=== PATIENT | male | born 1990 | race American Indian/Alaskan Native ===

== ENCOUNTER 2019-10-04 11:00 | Outpatient (CLI) | payer MEDICAID | END 2019-10-04 11:01 | disposition home or self-care (01) | LOC: SLR 11:00 | PROVIDERS: ATTEND Otolaryngology | DX: G47.30 Sleep apnea, unspecified (principal) | CPT/HCPCS: 95811 ==

== ENCOUNTER 2019-10-12 14:23 | Outpatient (CLI) | payer MEDICAID ==
[2019-10-12 14:45] LABS: Basophils # (Auto) 0.1 K/mm3 (0.0-0.1); Eosinophils # (Auto) 0.2 K/mm3 (0.0-0.4); Eosinophils % (Auto) 2.3 % (0.0-4.3); Hematocrit 44.1 % (35.5-45.6); Hemoglobin 14.3 gm/dl (11.8-15.2); Lymphocytes # (Auto) 2.1 K/mm3 (1.2-5.4); Lymphocytes % (Auto) 24.8 % (13.4-35.0); Mean Corpuscular HGB Conc 32 % (32-34); Mean Corpuscular Volume 82 fl (84-94); Monocytes # (Auto) 0.9 K/mm3 (0.0-0.8); Platelet Count 229 K/mm3 (140-440); Red Blood Count 5.36 M/mm3 (3.65-5.03); Red Cell Distribution Width 15.2 % (13.2-15.2)
[2019-10-12 15:03] LABS: Alanine Aminotransferase 56 units/L (7-56); Albumin 4.2 g/dL (3.9-5); BUN/Creatinine Ratio 14; Blood Urea Nitrogen 14 mg/dL (9-20); Calcium 9.8 mg/dL (8.4-10.2); Chol/HDL Ratio 4.85 %; HDL Cholesterol 34 mg/dL (40-59); Hemolysis Index 7; LDL Cholesterol,Direct 119 mg/dL (50-130)
== END 2019-10-12 14:24 | disposition home or self-care (01) ==
LOC: LAB 14:23
PROVIDERS: ATTEND Surgery
DX: Z00.00 Encounter for general adult medical examination without abnormal findings (principal); K30 Functional dyspepsia; D50.9 Iron deficiency anemia, unspecified; E61.8 Deficiency of other specified nutrient elements
CPT/HCPCS: 36415; 80053; 80061; 83036; 84443; 85025

== ENCOUNTER 2019-10-25 07:41 | Day surgery (SDC) | payer MEDICAID ==
[~2019-10-25 07:41] MED LIST: SODIUM CHLORIDE 0.9% 1000 ML 1,000 ML IV SCH
--- NOTE | 2019-10-25 08:57 | Discharge Summary ---
Providers - Providers Date of Admission: 10/25/2019 Date of discharge: 10/25/19 Attending physician: SHANDA GUERRERO MD Primary care physician: CORY SANTIAGO Hospitalization Reason for admission: egd Condition: Good Procedures: egd Hospital course: pt had an uneventful egd as part of pre-op work up for bariatric surgery Disposition: DC-01 TO HOME OR SELFCARE Core Measure Documentation - Palliative Care Palliative Care/ Comfort Measures: Not Applicable - Core Measures Any of the following diagnoses?: none Exam - Physical Exam Narrative exam: unchanged from h&p Plan Activity: no restrictions Diet: low carbohydrate Follow up with: CORY SANTIAGO MD [Primary Care Provider] - 7 Days
--- NOTE | 2019-10-25 08:59 | Operative Report ---
Operative Report Operative Report: OPERATIVE REPORT - EGD DATE 10/25/2019 SURGERY: Upper endoscopy with antral biopsy SURGEON: Mio Farley M.D. APPRENTICESHIP TRAINING REPRESENTATIVE: n/a PRE OP DX: morbid obesity, GERD POST OP DX: morbid obesity, GERD, small hiatal hernia, gastritis TYPE OF ANESTHESIA: MAC. ESTIMATED BLOOD LOSS: None. COMPLICATIONS: None. SPECIMENS REMOVED: None. FINDINGS: 1. Small hiatal hernia. 2. mild diffuse gastritis 3. Otherwise, normal esophagus, stomach and first portion of duodenum. INDICATIONS:INDICATION FOR PROCEDURE: Patient is a 29-year-old male with a long history of morbid obesity. She is planned to have a weight loss procedure and is here for preoperative planning EGD. PROCEDURE DETAILS: After consent was reviewed, patient was taken back to the operating room where patient was placed in the left lateral decubitus position and a bite block was placed in the mouth. After a time-out was called, MAC anesthesia was initiated. I then passed the endoscope into her oropharynx, into his esophagus, visualized the entire esophagus, which was all within normal limits. The Z-line was noted to be regular and about 42cm from the incisors. I then visualized the stomach and the first portion of the duodenum and there were no abnormalities, except for mild diffuse gastritis. I then retroflexed the scope in the stomach and visualized the hiatus and I could see a small hiatal hernia. A cold antral biopsy was performed to eval for h.pylori as part of the pre-op work up and further investigate cause of mucosal changes consistent with gastritis. I then desufflated the stomach and removed the endoscope. Patient tolerated procedure well and was transferred to recovery room in good and stable condition.
--- NOTE | 2019-10-25 09:27 | Anesthesia Day of Surgery ---
Anesthesia Day of Surgery - Day of Surgery Patient Examined: Yes Patient H&P Reviewed: Yes Patient is NPO: Yes
--- NOTE | 2019-10-25 09:30 | Anesthesia Consultation ---
Anesthesia Consult and Med Hx Date of service: 10/25/19 - Airway Anesthetic Teeth Evaluation: Chipped ROM Head & Neck: Adequate Mental/Hyoid Distance: Adequate Mallampati Class: Class II Intubation Access Assessment: Probably Good - Pre-Operative Health Status ASA Pre-Surgery Classification: ASA3 Proposed Anesthetic Plan: MAC - Pulmonary Hx Sleep Apnea: Yes - Cardiovascular System Hx Hypertension: Yes - Central Nervous System Hx Neuromuscular Disorder: Yes (Right fingers neuropathy)
[2019-10-25] MEDS ORDERED: LIDOCAINE (2%) 20 MG/1 ML VIAL 20 ML MDV INFILTRATI ONE (10:05)
[2019-10-25] MEDS ORDERED: PROPOFOL 200 MG/20 ML VIAL IV ONE ×2 (10:05→10:06)
[2019-10-25] MEDS ORDERED: fentaNYL 100 MCG/2 ML INJ ONE (10:09)
--- NOTE | 2019-10-25 10:44 | Post Anesthesia Evaluation ---
- Post Anesthesia Evaluation Patient Participated: Yes Airway Patent: Yes Stable Respiratory Function: Yes Nausea/Vomiting: No Temp > 96.8F: Yes Pain Manageable: Yes Adequeate Hydration: Yes Anesthesia Complications: No Block Receding Appropriately: Not Applicable Patient on Ventilator: No
[2019-10-25 11:26] VITALS: BP 120/67
== END 2019-10-25 07:42 | disposition home or self-care (01) ==
LOC: GIO 07:41
PROVIDERS: ATTEND Surgery
DX: K21.9 Gastro-esophageal reflux disease without esophagitis (principal); K44.9 Diaphragmatic hernia without obstruction or gangrene; K29.70 Gastritis, unspecified, without bleeding; E66.01 Morbid (severe) obesity due to excess calories; K30 Functional dyspepsia; G62.9 Polyneuropathy, unspecified; I10 Essential (primary) hypertension; G47.30 Sleep apnea, unspecified; Z98.890 Other specified postprocedural states; Z79.899 Other long term (current) drug therapy
CPT/HCPCS: 43239; 88305; 88342; J2704; J3010; J7030

== ENCOUNTER 2019-12-25 08:12 | Outpatient (CLI) | payer MEDICAID ==
[2019-12-25] MEDS ORDERED: ALBUTEROL 2.5 MG/3 ML NEBU IH ONE (08:57)
== END 2019-12-25 08:13 | disposition home or self-care (01) ==
LOC: PF 08:12
PROVIDERS: ATTEND Surgery
DX: E66.2 Morbid (severe) obesity with alveolar hypoventilation (principal)
CPT/HCPCS: 94060; 94640; 94729

== ENCOUNTER 2020-03-08 07:08 | Outpatient (CLI) | payer MEDICAID ==
[2020-03-08] MEDS ORDERED: DOBUTamine 100 MG in DEXTROSE 5% IN WATER 92 ML IV ONE (09:00)
[2020-03-08] MEDS ORDERED: ATROPINE 1 MG/ML VIAL ONE (09:40)
[2020-03-08] MEDS ORDERED: ATROPINE 1 MG/ML VIAL IV ONE (09:58)
--- NOTE | 2020-03-08 11:13 | Treadmill Report ---
DOBUTAMINE STRESS ECHO ORDERING PHYSICIAN: Dr. Farley. This is being done on 03/08/2020 for 29-year-old male for preop for gastric bypass preop assessment. Baseline echo findings with Definity shows normal LV function, EF approximately 55-60% with no valvular abnormalities in the mitral and aortic valve. The patient's baseline heart rate was 70. Baseline EKG, sinus rhythm with nonspecific ST-Ts. Baseline blood pressure was 149/95. The patient infused. DOBUTAMINE PROTOCOL: The patient was infused with dobutamine and achieved target heart rate of 152 beats per minute, which is 84% of max predicted heart rate with a 40 mcg of dobutamine and 1 mg of atropine. The patient's imaging at low and peak shows normal LV function with no wall motion abnormality, EF greater than 65% with no wall motion was done with no EKG changes during the dobutamine and atropine infusion. The patient was placed in recovery and the patient had no EKG changes and patient had mild shortness of breath during this stress test. SUMMARY: 1. Negative dobutamine stress echo. 2. Normal LV function on baseline with Definity. 3. During peak dobutamine infusion with atropine achieving 84% of max predicted heart rate with Definity the patient had no wall motion abnormalities suggestive of ischemia with normal LV function, EF greater than 65%. No mitral valve abnormalities noted. JOB# [id number] LATHA/SHANNAN
[2020-03-08 11:30] VITALS: BP 173/97
== END 2020-03-08 07:09 | disposition home or self-care (01) ==
LOC: ECHO 07:08
PROVIDERS: ATTEND Surgery
DX: E66.01 Morbid (severe) obesity due to excess calories (principal)
CPT/HCPCS: 93017; 93320; 93325; 93350; 96365; J0461; J1250; 96374

== ENCOUNTER 2020-04-08 07:30 | Inpatient (IN) | payer MEDICAID ==
[2020-04-04 09:54] LABS: Hematocrit 45.6 % (35.5-45.6); Hemoglobin 15.3 gm/dl (11.8-15.2); Mean Corpuscular HGB Conc 34 % (32-34); Mean Corpuscular Volume 81 fl (84-94); Platelet Count 272 K/mm3 (140-440); Red Blood Count 5.64 M/mm3 (3.65-5.03); Red Cell Distribution Width 14.8 % (13.2-15.2)
[2020-04-04 10:15] LABS: BUN/Creatinine Ratio 14; Blood Urea Nitrogen 13 mg/dL (9-20); Calcium 10.3 mg/dL (8.4-10.2); Hemolysis Index 34
--- NOTE | 2020-04-04 21:47 | Anesthesia Consultation ---
Anesthesia Consult and Med Hx Date of service: 04/08/20 - Airway Anesthetic Teeth Evaluation: Good ROM Head & Neck: Adequate Mental/Hyoid Distance: Adequate (large bentley) Mallampati Class: Class III Intubation Access Assessment: Possibly Difficult - Pulmonary Exam CTA: Yes - Cardiac Exam Cardiac Exam: RRR - Pre-Operative Health Status ASA Pre-Surgery Classification: ASA3 Proposed Anesthetic Plan: General - Pulmonary Hx Smoking: No Hx Respiratory Symptoms: No Hx Sleep Apnea: Yes (compliant with CPAP) - Cardiovascular System Hx Hypertension: Yes Hx Heart Attack/AMI: No Hx Percutaneous Transluminal Coronary Angioplasty (PTCA): No Hx Cardia Arrhythmia: No Hx Peripheral Vascular Disease: Yes (venous insufficiency) - Central Nervous System Hx Neuromuscular Disorder: No (peripheral neuropathy R hand) CVA: No Hx Back Pain: Yes - Gastrointestinal Hx Gastroesophageal Reflux Disease: Yes (diet controlled) - Endocrine Hx Renal Disease: No Hx Liver Disease: No Hx Insulin Dependent Diabetes: No Hx Non-Insulin Dependent Diabetes: No Hx Thyroid Disease: No - Other Systems Hx Obesity: Yes (BMI 60) - Additional Comments Anesthesia Medical History Comments: No hx anesthetic complications.
[~2020-04-08 07:30] MED LIST changes: +BACTERIOSTATIC SODIUM CHLORIDE 0.9% 30 ML VIAL INFILTRATI ONE; +ENOXAPARIN 40 MG/0.4 ML INJ SUB-Q NR; +HYDROmorphone 1 MG/1 ML INJ ONE; +LACTATED RINGERS 1,000 ML IV SCH; +LIDOCAINE MPF (2%) 20 MG/1 ML VIAL 5 ML ONE; +MIDAZOLAM 2 MG/2 ML INJ IV NR; +MIDAZOLAM 2 MG/2 ML INJ ONE; +SCOPOLAMINE TRANSDERMAL PATCH 72 HR TD SCH; -SODIUM CHLORIDE 0.9% 1000 ML 1,000 ML IV SCH; +SUCCINYLCHOLINE CHLORIDE 200 MG/10 ML INJ MDV ONE; +ceFAZolin/Water 2 GM/20 ML 2 GM/20 ML SYRINGE IV NR; +metroNIDAZOLE/NS 500 MG/100 ML 500 MG/100 ML BAG IV NR; +propofoL 200 MG/20 ML VIAL IV ONE
[2020-04-08] MEDS ORDERED: ONDANSETRON 4 MG/2 ML INJ IV PRN ×2 (07:43→07:52)
[2020-04-08] MEDS ORDERED: MORPHINE 2 MG/1 ML INJ IV PRN (07:43)
[2020-04-08] MEDS ORDERED: hydrALAZINE 20 MG/1 ML INJ IV PRN (07:43)
[2020-04-08] MEDS ORDERED: METOCLOPRAMIDE 10 MG/2 ML INJ IV PRN (07:43)
[2020-04-08] MEDS ORDERED: HYDROmorphone 1 MG/1 ML INJ IV PRN ×2 (07:43→07:52)
[2020-04-08] MEDS ORDERED: HYDROcodone/APAP 7.5-325MG-15ML ORAL LIQD PO PRN (07:43)
[2020-04-08] MEDS ORDERED: SIMETHICONE 80 MG CHEW TAB PO PRN (07:43)
--- NOTE | 2020-04-08 07:52 | Anesthesia Day of Surgery ---
Anesthesia Day of Surgery - Day of Surgery Patient Examined: Yes Patient H&P Reviewed: Yes Patient is NPO: Yes
[2020-04-08] MEDS ORDERED: LIDOCAINE (1%) 10 MG/1 ML VIAL 20 ML MDV ONE (07:58)
[2020-04-08] MEDS ORDERED: BUPIVACAINE-EPINEPHRINE/PF 0.5%-1:200,000 (30 ML) VIAL INFILTRATI ONE ×2 (07:58→10:00)
[2020-04-08] MEDS ORDERED: KETAMINE/STERILE WATER 50 MG/ML SYRINGE ONE (08:38)
[2020-04-08] MEDS ORDERED: SUGAMMADEX SODIUM 200 MG/2 ML VIAL IV ONE (08:48)
[2020-04-08] MEDS ORDERED: SODIUM CHLORIDE 0.9% IRR 1,500 ML BOTTLE IR ONE (09:53)
[2020-04-08] MEDS ORDERED: SODIUM CHLORIDE 0.9% IRRIG SOLN 2000 ML IR ONE (09:57)
[2020-04-08] MEDS ORDERED: LIDOCAINE (1%) 10 MG/1 ML VIAL 20 ML MDV INFILTRATI ONE (09:58)
[2020-04-08] MEDS ORDERED: BUPIVACAINE-EPINEPHRINE/PF 0.25%-1:200,000 (30 ML) VIAL INFILTRATI ONE (10:00)
[2020-04-08] MEDS ORDERED: ONDANSETRON 4 MG/2 ML INJ ONE (12:43)
[2020-04-08] MEDS ORDERED: LACTATED RINGERS 1,000 ML ONE (12:44)
[2020-04-08] MEDS ORDERED: ROCURONIUM 50 MG/5 ML INJ IV ONE (13:00)
--- NOTE | 2020-04-08 13:14 | Operative Report ---
Operative Report Operative Report: DATE OF PROCEDURE: 04/08/20 SURGEON: Mio Farley M.D. PUBLISHING SYSTEMS ANALYST: Erika Taylor MD PREOPERATIVE DIAGNOSIS: Morbid obesity. POSTOPERATIVE DIAGNOSES: Morbid obesity PROCEDURES PERFORMED: 1. Laparoscopic gastric bypass. 2. EGD. ANESTHESIA: General endotracheal tube intubation. SPECIMENS: None. ESTIMATED BLOOD LOSS: Less than 20 mL. FINDINGS: Very large redundant stomach COMPLICATIONS: None immediate. INDICATION: is a 29-year-old female with history of morbid obesity. he signed informed consent and expressed understanding of risks and benefits. DESCRIPTION OF PROCEDURE: Patient was brought to the OR suite, laid in supine position. Bilateral lower extremity SCDs were placed. General anesthesia was induced via successful endotracheal tube intubation. Patient's abdomen was prepped and draped in sterile fashion. Using Optiview technique, a 12-mm trocar was placed into the abdominal cavity under direct vision. There was noted to be no gross injury to any intraabdominal structures. 4 working trocars were placed under direct visualization, 12 mm in the right mid abdomen mid clavicular line and three 5-mm trocars in the right upper quadrant, epigastric, left upper quadrant. At this time, the ligament of Treitz identified and followed down approximately 50 cm and the jejunum was transected. The distal segment of jejunum was then traced for approximately 100 cm and a stable [id number] jejunojejunostomy was performed. The common enterotomy was closed with 2 firings of the endoscopic stapler. The mesenteric defect was closed with non-absorbable v-loc suture. This anastomosis was found to be patent without kink, obstruction or bleeding. At this time, the patient was placed in steep reverse Trendelenburg position. A liver retractor was placed through the epigastric port to elevate the left lateral lobe of the liver. A small gastric pouch was formed via serial firings of the laparoscopic stapler using the blue load. The stomach was very large and redundant making it more challenging than normal create the pouch, and have optimal visualization. An extra 12mm trocar was placed a few cm superior to the other 12mm trocars to assist with reaching the hiatus and angle of His. There was concern that a hole was made in the stomach while making the pouch and an egd was performed prior to completion of the pouch of which no gastric defect could be detected on the pouch or remnant side. After the pouch was completely from the remnant an EGD was performed in the pouch and via insuflation and the pouch submerged under saline no bubbles were noted to signify a leak. the remnant was also inspected and no obvious defect was appreciated. The Freeman limb was then brought in an antegastric antecolic fashion and secured with 2 stay sutures to the gastric pouch. After this, the enterotomies were made with Harmonic scalpel, and a [id number]-[id number] stapled gastrojejunostomy was performed with a mechanical stapler. After this, a 2-layer running closure using absorbable v-loc suture were done, the first being mucosal approximation prior to completion of the first layer. The anesthesia passed and an EGD scope beyond the anastomosis to act as a stent. The first layer was completed, the second was then performed. After this, the EGD was retracted slightly. A bowel clamp was placed in a proximal Freeman limb. The anastomosis was submerged under saline. Via intraluminal EGD insufflation, there was noted be no bubbles in the saline indicating an airtight anastomosis. There was noted to be no obstruction or bleeding intraluminally in the pouch or the anastomosis. At this time, the scope was removed. The saline was aspirated. Tiseel was placed over the anastomosis. A 19 Fr round drain was placed around the anastamosis and exited out of the right side. All trocars were removed under direct visualization and the abdomen was then desufflated after the 12mm trocars were closed at the fascial layer using a miesha-florin device and O-vicryl. The skin incisions were closed with 4-0 Monocryl followed by Dermabond dressings. Patient was awoken and taken to recovery in stable condition. All counts were correct.
[2020-04-08] MEDS ORDERED: DEXTROSE 50% IN WATER (25GM) 50 ML SYRINGE IV PRN (13:21)
[2020-04-08] MEDS: KETOROLAC 30 MG/1 ML INJ IV SCH ×3 (13:30→20:30)
[2020-04-08] MEDS ORDERED: ceFAZolin/NS 1 GM/50 ML 1 GM/50 ML BAG IV SCH ×2 (14:00→23:15)
[2020-04-08] MEDS: metroNIDAZOLE/NS 500 MG/100 ML 500 MG/100 ML BAG IV SCH (17:40)
[2020-04-08] MEDS: LACTATED RINGERS 1,000 ML IV SCH (21:57)
[2020-04-09] MEDS: metroNIDAZOLE/NS 500 MG/100 ML 500 MG/100 ML BAG IV SCH ×2 (01:16→11:21)
[2020-04-09] MEDS: KETOROLAC 30 MG/1 ML INJ IV SCH ×4 (02:54→22:48)
[2020-04-09 06:47] LABS: Basophils # (Auto) 0.1 K/mm3 (0.0-0.1); Basophils % (Auto) 0.6 % (0.0-1.8); Eosinophils # (Auto) 0.1 K/mm3 (0.0-0.4); Eosinophils % (Auto) 1.6 % (0.0-4.3); Hematocrit 40.8 % (35.5-45.6); Hemoglobin 13.3 gm/dl (11.8-15.2); Lymphocytes # (Auto) 1.2 K/mm3 (1.2-5.4); Lymphocytes % (Auto) 13.8 % (13.4-35.0); Mean Corpuscular HGB Conc 33 % (32-34); Mean Corpuscular Volume 82 fl (84-94); Monocytes # (Auto) 0.7 K/mm3 (0.0-0.8); Monocytes % (Auto) 8.5 % (0.0-7.3); Platelet Count 227 K/mm3 (140-440); Red Blood Count 4.97 M/mm3 (3.65-5.03); Red Cell Distribution Width 15.1 % (13.2-15.2)
[2020-04-09] MEDS: LACTATED RINGERS 1,000 ML IV SCH (07:00)
[2020-04-09 07:09] LABS: Alanine Aminotransferase 57 units/L (7-56); Albumin 3.7 g/dL (3.9-5); BUN/Creatinine Ratio 10; Blood Urea Nitrogen 12 mg/dL (9-20); Calcium 8.9 mg/dL (8.4-10.2); Hemolysis Index 17
--- NOTE | 2020-04-09 09:27 | Progress Note ---
Assessment and Plan POD#1 s/p lap gastric bypass, afebrile and stable. Showing no clinical signs of leak or bleeding. Will get UGI today, if negative will start clear liquids. Will get PT to ambulate patient today. Subjective Date of service: 04/09/20 Patient Reports: Positive: no new complaints. Negative: nausea, vomiting (no acute events overnight) Objective Vital Signs - 12hr 04/08/20 04/09/20 04/09/20 21:49 00:02 04:03 Temperature 98.4 F 97.9 F Pulse Rate 81 81 Respiratory 17 20 Rate Blood Pressure 129/76 122/65 O2 Sat by Pulse 96 99 96 Oximetry 04/09/20 07:00 Temperature 98.9 F Pulse Rate 73 Respiratory 20 Rate Blood Pressure 113/66 O2 Sat by Pulse 99 Oximetry - General physical appearance well developed, no distress, obese - Respiratory normal expansion, normal respiratory effort - Abdomen soft, other (incisions c/d/i, ALIZA drain with sero-sanguinous fluid, appropriatley tender to palpation) - Musculoskeletal other (bilateral lower extremity lymphedma) - Labs 04/09/20 06:02 04/09/20 06:02 Diabetes panel 04/09/20 Range/Units 06:02 Sodium 137 (137-145) mmol/L Potassium 3.3 L (3.6-5.0) mmol/L Chloride 94.5 L (98-107) mmol/L Carbon Dioxide 31 H (22-30) mmol/L BUN 12 (9-20) mg/dL Creatinine 1.2 (0.8-1.5) mg/dL Glucose 111 H (75-100) mg/dL Calcium 8.9 (8.4-10.2) mg/dL AST 42 H (5-40) units/L ALT 57 H (7-56) units/L Alkaline Phosphatase 67 (35-129) units/L Total Protein 7.0 (6.3-8.2) g/dL Albumin 3.7 L (3.9-5) g/dL Calcium panel 04/09/20 Range/Units 06:02 Calcium 8.9 (8.4-10.2) mg/dL Albumin 3.7 L (3.9-5) g/dL Pituitary panel 04/09/20 Range/Units 06:02 Sodium 137 (137-145) mmol/L Potassium 3.3 L (3.6-5.0) mmol/L Chloride 94.5 L (98-107) mmol/L Carbon Dioxide 31 H (22-30) mmol/L BUN 12 (9-20) mg/dL Creatinine 1.2 (0.8-1.5) mg/dL Glucose 111 H (75-100) mg/dL Calcium 8.9 (8.4-10.2) mg/dL Adrenal panel 04/09/20 Range/Units 06:02 Sodium 137 (137-145) mmol/L Potassium 3.3 L (3.6-5.0) mmol/L Chloride 94.5 L (98-107) mmol/L Carbon Dioxide 31 H (22-30) mmol/L BUN 12 (9-20) mg/dL Creatinine 1.2 (0.8-1.5) mg/dL Glucose 111 H (75-100) mg/dL Calcium 8.9 (8.4-10.2) mg/dL Total Bilirubin 0.70 (0.1-1.2) mg/dL AST 42 H (5-40) units/L ALT 57 H (7-56) units/L Alkaline Phosphatase 67 (35-129) units/L Total Protein 7.0 (6.3-8.2) g/dL Albumin 3.7 L (3.9-5) g/dL
[2020-04-09] MEDS: ENOXAPARIN 40 MG/0.4 ML INJ SUB-Q SCH (11:20)
--- NOTE | 2020-04-09 15:04 | Event Note ---
Date: 04/09/20 Spoke with radiology dept. Pt had to have modified gastrograffin swallow in his room due the flouro table not being able to hold his weight. The test went well and the radiologist read the exam as negative for leak or obstruction. Radiology dept currently having problems putting images and report into [employer] EMR. OK to start clears. Nurse also reported patient was ambulated with PT today.
--- NOTE | 2020-04-09 18:51 | Fluoroscopy Report ---
UPPER GI SERIES HISTORY: Recent gastric bypass surgery, evaluate for gastric leak FINDINGS: A modified examination had to be performed due to the patient's weight. The patient's weight exceeded the fluoroscopy table limits. No fluoroscopy was utilized. 100 cc of water-soluble contrast was administered orally and 4 KUBs were obtained to evaluate for mesha k. Please note the images are limited secondary to body habitus. Contrast agent is seen within the di stal esophagus, gastric pouch and proximal small bowel loops. There is no evidence for obstruction. N o obvious gastric leak is appreciated on this limited exam. Please correlate with the patient's clini cheryle presentation. Signer Name: Forrest Price Jr, MD Signed: 04/09/2020 10:53 AM Workstation Name: [id number]
[2020-04-10] MEDS: KETOROLAC 30 MG/1 ML INJ IV SCH (03:56)
[2020-04-10] MEDS: LACTATED RINGERS 1,000 ML IV SCH (06:04)
[2020-04-10 07:24] LABS: Basophils # (Auto) 0.1 K/mm3 (0.0-0.1); Basophils % (Auto) 0.6 % (0.0-1.8); Eosinophils # (Auto) 0.2 K/mm3 (0.0-0.4); Eosinophils % (Auto) 2.4 % (0.0-4.3); Hematocrit 38.7 % (35.5-45.6); Hemoglobin 12.6 gm/dl (11.8-15.2); Lymphocytes # (Auto) 1.4 K/mm3 (1.2-5.4); Mean Corpuscular HGB Conc 33 % (32-34); Mean Corpuscular Volume 83 fl (84-94); Monocytes # (Auto) 0.9 K/mm3 (0.0-0.8); Monocytes % (Auto) 10.4 % (0.0-7.3); Platelet Count 213 K/mm3 (140-440); Red Blood Count 4.68 M/mm3 (3.65-5.03)
[2020-04-10 07:47] LABS: Alanine Aminotransferase 36 units/L (7-56); Albumin 3.6 g/dL (3.9-5); BUN/Creatinine Ratio 10; Blood Urea Nitrogen 11 mg/dL (9-20); Calcium 8.9 mg/dL (8.4-10.2); Hemolysis Index 5
[2020-04-10] MEDS: ENOXAPARIN 40 MG/0.4 ML INJ SUB-Q SCH (09:49)
--- NOTE | 2020-04-10 12:01 | Discharge Summary ---
Providers - Providers Date of Admission: 04/08/20 14:06 Date of discharge: 04/10/20 Attending physician: SHANDA GUERRERO MD 04/08/20 07:43 Physical Therapy Evaluation and Treat [CONS] Routine Comment: Reason For Exam: post op bariatric surgery eval for ambulation Primary care physician: CORY SANTIAGO Hospitalization Reason for admission: s/p lap gastric bypass Condition: Good Pertinent studies: gastrograffin swallow study - negative for leak Procedures: lap gastric bypass Hospital course: Pt had an uncomplicated lap gastric bypass. He did well post op and remained afebrile and stable showing no clinical signs of leak or bleeding. He was ambulating and tolerating liquids. His ALIZA drain was removed prior to discharge. Disposition: TO HOME OR SELFCARE Core Measure Documentation - Palliative Care Palliative Care/ Comfort Measures: Not Applicable - Core Measures Any of the following diagnoses?: none Exam - Constitutional Vitals: Temp Pulse Resp BP Pulse Ox 98.5 F 107 H 18 157/97 95 04/10/20 09:01 04/10/20 09:01 04/10/20 09:01 04/10/20 09:01 04/10/20 09:01 General appearance: Present: no acute distress, obese - Respiratory Respiratory effort: normal - Extremities Extremities: abnormal (bilateral lower extremity lymphedema) - Abdominal General gastrointestinal: Present: other (obese, soft, appropriatley tender, ALIZA drain with serous drainage prior to removal, incisions c/d/i) Plan Activity: advance as tolerated Diet: clear liquids Wound: open to air, keep clean and dry Special Instructions: hold Metformin Follow up with: CORY SANTIAGO MD [Primary Care Provider] - 7 Days
[2020-04-10 13:14] VITALS: BP 121/82
== END 2020-04-10 18:00 | disposition home or self-care (01) | DRG 621 ==
LOC: CC1 14:06 → 3B-SURG 14:09
PROVIDERS: ADMIT Surgery; ATTEND Surgery
PROC: 0D164ZA Bypass Stomach to Jejunum, Percutaneous Endoscopic Approach (ICD-10-PCS; principal; 2020-04-08)
PROC: 0DJ08ZZ Inspection of Upper Intestinal Tract, Via Natural or Artificial Opening Endoscopic (ICD-10-PCS; 2020-04-08)
DX: E66.01 Morbid (severe) obesity due to excess calories (principal); I10 Essential (primary) hypertension; K21.9 Gastro-esophageal reflux disease without esophagitis; I73.9 Peripheral vascular disease, unspecified; Z68.44 Body mass index [BMI] 60.0-69.9, adult; G47.30 Sleep apnea, unspecified; I89.0 Lymphedema, not elsewhere classified; K30 Functional dyspepsia; Z82.49 Family history of ischemic heart disease and other diseases of the circulatory system; Z83.3 Family history of diabetes mellitus; Z82.5 Family history of asthma and other chronic lower respiratory diseases
CPT/HCPCS: 36415; 74240; 80048; 80053; 82962; 85025; 85027; 94760; G0378; A4217; C9250; J0330; J0690; J1170; J1650; J1885; J2250; J2405; J2704; J7120; Q9963; U0003

== ENCOUNTER 2020-06-05 15:22 | Outpatient (CLI) | payer MEDICAID ==
[2020-06-05 16:00] LABS: Basophils % (Auto) 0.7 % (0.0-1.8); Eosinophils # (Auto) 0.3 K/mm3 (0.0-0.4); Eosinophils % (Auto) 5.3 % (0.0-4.3); Hemoglobin 14.1 gm/dl (11.8-15.2); Lymphocytes # (Auto) 1.8 K/mm3 (1.2-5.4); Mean Corpuscular HGB Conc 32 % (32-34); Mean Corpuscular Volume 83 fl (84-94); Monocytes # (Auto) 0.7 K/mm3 (0.0-0.8); Monocytes % (Auto) 10.3 % (0.0-7.3); Platelet Count 213 K/mm3 (140-440); Red Blood Count 5.28 M/mm3 (3.65-5.03); Red Cell Distribution Width 15.7 % (13.2-15.2)
[2020-06-05 16:17] LABS: Alanine Aminotransferase 46 units/L (7-56); Albumin 4.2 g/dL (3.9-5); BUN/Creatinine Ratio 14; Blood Urea Nitrogen 11 mg/dL (9-20); Calcium 9.6 mg/dL (8.4-10.2); Hemolysis Index 1; Iron 76 ug/dL (49-181); Total Iron Binding Capacity 293 mcg/dL (250-450)
== END 2020-06-05 15:23 | disposition home or self-care (01) ==
LOC: LAB 15:22
PROVIDERS: ATTEND Surgery
DX: Z00.00 Encounter for general adult medical examination without abnormal findings (principal); K30 Functional dyspepsia; E61.8 Deficiency of other specified nutrient elements; D50.9 Iron deficiency anemia, unspecified
CPT/HCPCS: 36415; 80053; 82306; 82607; 83550; 83970; 84425; 85025

== ENCOUNTER 2021-09-25 10:52 | Outpatient (CLI) | payer MEDICAID ==
[2021-09-25 11:25] LABS: Basophils # (Auto) 0.1 K/mm3 (0.0-0.1); Basophils % (Auto) 0.9 % (0.0-1.8); Eosinophils # (Auto) 0.2 K/mm3 (0.0-0.4); Eosinophils % (Auto) 2.7 % (0.0-4.3); Hematocrit 42.7 % (35.5-45.6); Hemoglobin 13.9 gm/dl (11.8-15.2); Lymphocytes # (Auto) 1.9 K/mm3 (1.2-5.4); Lymphocytes % (Auto) 30.6 % (13.4-35.0); Mean Corpuscular HGB Conc 33 % (32-34); Mean Corpuscular Volume 82 fl (84-94); Monocytes # (Auto) 0.6 K/mm3 (0.0-0.8); Monocytes % (Auto) 9.4 % (0.0-7.3); Platelet Count 201 K/mm3 (140-440); Red Cell Distribution Width 14.7 % (13.2-15.2)
[2021-09-25 11:42] LABS: % Iron Saturation 15.67 %; Alanine Aminotransferase 26 units/L (7-56); Albumin 4.2 g/dL (3.9-5); BUN/Creatinine Ratio 11; Blood Urea Nitrogen 9 mg/dL (9-20); Calcium 9.2 mg/dL (8.4-10.2); Chol/HDL Ratio 2.22 %; HDL Cholesterol 44 mg/dL (40-59); Hemolysis Index 3; Iron 47 ug/dL (49-181); LDL Cholesterol,Direct 51 mg/dL (50-130); Total Iron Binding Capacity 300 mcg/dL (250-450)
== END 2021-09-25 10:53 | disposition home or self-care (01) ==
LOC: LAB 10:52
PROVIDERS: ATTEND Surgery
DX: E55.9 Vitamin D deficiency, unspecified (principal); E11.9 Type 2 diabetes mellitus without complications; E66.01 Morbid (severe) obesity due to excess calories; K90.9 Intestinal malabsorption, unspecified; K30 Functional dyspepsia; Z98.84 Bariatric surgery status
CPT/HCPCS: 36415; 80053; 80061; 82306; 82607; 82728; 83036; 83550; 83970; 84425; 84443; 85025